=== PATIENT | female | born 1965 | race Caucasian/White ===

== ENCOUNTER 2016-08-26 10:02 | Emergency (ER) | payer OTHER ==
[2016-08-26 10:13] VITALS: BP 104/59; PULSE 62; RESP 16; TEMP 98.2; O2SAT 95
[2016-08-26 10:26] LABS: COLOR YELLOW; LEUKOCYTE ESTERASE,URINE 2+ (NEGATIVE); NITRITE,URINE NEGATIVE (NEGATIVE); PH,URINE 6.5 (5.0-7.5)
[2016-08-26 10:34] LABS: WBC,URINE >182 /hpf (0-3)
[2016-08-26 10:35] LABS: BACTERIA 3+ /hpf (NONE SEEN); MUCUS TRACE /lpf (NONE-1+)
--- NOTE | 2016-08-26 10:51 | UCPHY ---
H & P Time Seen by Provider: 08/26/16 10:40 Patient Type: New HPI/ROS: This patient reports initially developing UTI symptoms of dysuria over 10 days ago treated with 2 days of Bactrim without improvement by a primary care physician, then switched to Augmentin for another 3 days-5 days total treatment with resolution of symptoms. However her symptoms recurred starting 6 days ago. She now reports associated mild back ache. She has difficulty ascertaining of her back ache is muscular and chronic as she does tend to have low back aches or if he may be related to early kidney infection. She has mild nausea but no vomiting. No other associated symptoms except onset of hematuria over the past 24 hours. ROS: No high fevers or chills. No other constitutional symptoms. Cardiovascular : No lightheadedness. GI: Again no vomiting. : No vaginal discharge. She reports that her dysuria is mild. 7 point ROS is otherwise negative. Past Medical/Surgical History: Frequent UTIs Smoking Status: Never smoked Physical Exam: Vital signs are normal. General Appearance: Alert, no distress.. ENT, Mouth: Mucous membranes moist. Respiratory: There are no retractions, lungs are clear to auscultation. Cardiovascular: Regular rate and rhythm. Gastrointestinal: Is positive moderate suprapubic tenderness with no guarding or rebound. Back: Lumbar tenderness bilaterally question muscular versus mild CVA tenderness. No midline tenderness. She retains good range of motion of her back. Neurological: Alert Skin: Warm and dry, no rashes. No pallor or diaphoresis Psychiatric: Patient is oriented X 3, there is no agitation. DIFFERENTIAL DIAGNOSIS: After history and physical exam differential diagnosis was considered for cystitis, early pyelonephritis, interstitial cystitis Constitutional: Initial Vital Signs Temperature (C) 36.8 C 08/26/16 10:10 Heart Rate 62 08/26/16 10:10 Respiratory Rate 16 08/26/16 10:10 Blood Pressure 104/59 L 08/26/16 10:10 O2 Sat (%) 95 08/26/16 10:10 O2 Delivery Mode Room Air Allergies/Adverse Reactions: No Known Allergies Allergy (Unverified 08/26/16 10:10) Home Medications: Medication Instructions Recorded Cephalexin [Keflex (*)] 500 mg PO TID #21 cap 08/26/16 Proair Hfa Icu (*) 08/26/16 Qvar 08/26/16 MDM/Departure - MDM Diagnostics: Urinalysis is consistent with UTI. I counseled the patient regarding this. ED Course/Re-evaluation: We spoke about antibiotic options. Will go with Keflex Discussion: Patient appears clinically well. She has mild back versus CVA tenderness but no significant constitutional symptoms or other concerning findings. - Depart Disposition: Home, Routine, Self-Care Clinical Impression: Urinary tract infection Qualifiers: Urinary tract infection type: site unspecified Hematuria presence: with hematuria Qualified Code(s): N39.0 - Urinary tract infection, site not specified Condition: Good Instructions: Urinary Tract Infection in Women (ED) Additional Instructions: Diagnosis: Urinary tract infection Plan: Drink plenty fluids Keflex antibiotic Return for any significant worsening despite the treatment plan Call Dr. Little to establish a primary care physician Prescriptions: Cephalexin [Keflex (*)] 500 mg PO TID #21 cap Referrals: Julian Gilliam MD [Primary Care Provider] - As per Instructions Chely Little MD [Medical Doctor] - As per Instructions - PQRS PQRS Measurement: NA
== END 2016-08-26 11:00 | disposition home or self-care (01) ==
LOC: CED 10:02
DX: N39.0 Urinary tract infection, site not specified (principal)
CPT/HCPCS: 81003-PO; 81015-PO; 81025-PO; G0463-PO

== ENCOUNTER → 2018-11-01 | Outpatient (CLI) | payer OTHER | LOC: EMCIMAGING 10:39 | PROVIDERS: ATTEND Family Medicine | DX: Z12.31 Encounter for screening mammogram for malignant neoplasm of breast (principal); Z98.82 Breast implant status | CPT/HCPCS: 77067-PN ==